=== PATIENT | female | born 1990 | race African-American/Black ===

== ENCOUNTER 2017-07-09 23:03 | Emergency (ER) | payer SELFPAY ==
[2017-07-09] MEDS ORDERED: NORMAL SALINE 1000 ML 1,000 ML IV ONE (23:55)
[2017-07-09] MEDS ORDERED: ONDANSETRON HCL INJ/PF 4 MG/2 ML SDV IV ONE (23:55)
[2017-07-10 00:56] LABS: APPEARANCE,URINE SLIGHTLY-CLOUDY; BILIRUBIN,URINE NEGATIVE (NEGATIVE); GLUCOSE, URINE NEGATIVE (NEGATIVE); KETONES,URINE 80 mg/dL (NEGATIVE); LEUKOCYTE ESTERASE,URINE NEGATIVE (NEGATIVE); NITRITE,URINE NEGATIVE (NEGATIVE); PROTEIN,URINE 30 mg/dL (NEGATIVE); UROBILINOGEN,URINE NEGATIVE mg/dL (<2.0)
[2017-07-10 01:01] LABS: HEMATOCRIT 42.8 % (36.0-47.0); HEMOGLOBIN 13.9 g/dL (12.0-15.5); HGB HCT DIFFERENCE -1.1; MEAN CORPUSCULAR HEMOGLOBIN 24.9 pg (27.0-33.4); MEAN CORPUSCULAR HGB CONC 32.4 g/dL (32.0-36.0); MEAN CORPUSCULAR VOLUME 77 fl (80-97); RED BLOOD COUNT 5.57 10^6/uL (3.72-5.28); RED CELL DISTRIBUTION WIDTH 14.5 % (11.5-14.0); WHITE BLOOD COUNT 9.5 10^3/uL (4.0-10.5)
[2017-07-10 01:12] LABS: BAND NEUTROPHILS % (MANUAL) 1 % (3-5); BASOPHILS % (MANUAL) 0 % (0-2); EOSINOPHILS % (MANUAL) 0 % (0-6); LYMPHOCYTES % (MANUAL) 3 % (13-45); TOTAL CELLS COUNTED 100
[2017-07-10 01:15] LABS: ALANINE AMINOTRANSFERASE 25 U/L (9-52); ALBUMIN 4.6 g/dL (3.5-5.0); ALKALINE PHOSPHATASE 56 U/L (38-126); ANION GAP 13 (5-19); ASPARTATE AMINO TRANSFERASE 20 U/L (14-36); BILIRUBIN,DIRECT 0.3 mg/dL (0.0-0.4); BILIRUBIN,TOTAL 1.3 mg/dL (0.2-1.3); BLOOD UREA NITROGEN 13 mg/dL (7-20); CALCIUM 9.7 mg/dL (8.4-10.2); CARBON DIOXIDE 24 mmol/L (22-30); CHLORIDE 105 mmol/L (98-107); CREATININE RESULT 0.72 mg/dL (0.52-1.25); GLUCOSE 102 mg/dL (75-110); SODIUM 142.3 mmol/L (137-145); TOTAL PROTEIN 8.1 g/dL (6.3-8.2)
[2017-07-10 01:18] LABS: ANISOCYTOSIS SLIGHT; HYPOCHROMASIA SLIGHT; MICROCYTOSIS SLIGHT; OVALOCYTES 1+; POIKILOCYTOSIS SLIGHT; TEAR DROP CELLS SLIGHT; TOXIC VACUOLATION PRESENT
[2017-07-10] MEDS ORDERED: NORMAL SALINE 1000 ML 1,000 ML IV ONE (01:18)
--- NOTE | 2017-07-10 02:36 | ER Document Report ---
ED General - General Chief Complaint: Nausea/Vomiting/Diarrhea Stated Complaint: VOMITING AND DIARRHEA Time Seen by Provider: 07/10/17 01:17 TRAVEL OUTSIDE OF THE [place] IN LAST 30 DAYS: No - HPI Patient complains to provider of: Nausea vomiting diarrhea Notes: Patient coming in for evaluation of nausea vomiting diarrhea ongoing just prior to arrival. Patient states had normal diet no other sick contacts denies any recent antibiotics or recent travel. Upon my evaluation patient is lying in the bed comfortably no obvious distress. Patient states she has been sipping some water states noted anything unusual about her diarrhea. Past Medical History - Social History Smoking Status: Unknown if Ever Smoked Family History: Reviewed & Not Pertinent Renal/ Medical History: Denies: Hx Peritoneal Dialysis Review of Systems - Review of Systems Constitutional: No symptoms reported EENT: No symptoms reported Cardiovascular: No symptoms reported Respiratory: No symptoms reported Gastrointestinal: Diarrhea, Nausea, Vomiting Genitourinary: No symptoms reported Female Genitourinary: No symptoms reported Musculoskeletal: No symptoms reported Skin: No symptoms reported Hematologic/Lymphatic: No symptoms reported Neurological/Psychological: No symptoms reported -: Yes All other systems reviewed and negative Physical Exam - Vital signs Vitals: Temp Pulse Resp BP Pulse Ox 99.5 F 103 H 20 123/78 100 07/09/17 23:51 07/09/17 23:51 07/09/17 23:51 07/09/17 23:51 07/09/17 23:51 Interpretation: Normal - General General appearance: Appears well, Alert - HEENT Head: Normocephalic, Atraumatic Eyes: Normal Pupils: PERRL - Respiratory Respiratory status: No respiratory distress Chest status: Nontender Breath sounds: Normal Chest palpation: Normal - Cardiovascular Rhythm: Regular Heart sounds: Normal auscultation Murmur: No - Abdominal Inspection: Normal Distension: No distension Bowel sounds: Normal Tenderness: Nontender Organomegaly: No organomegaly - Back Back: Normal, Nontender - Extremities General upper extremity: Normal inspection, Nontender, Normal color, Normal ROM , Normal temperature General lower extremity: Normal inspection, Nontender, Normal color, Normal ROM , Normal temperature, Normal weight bearing. No: Grace's sign - Neurological Neuro grossly intact: Yes Cognition: Normal Orientation: AAOx4 Philip Coma Scale Eye Opening: Spontaneous [place] Coma Scale Verbal: Oriented [place] Coma Scale Motor: Obeys Commands [place] Coma Scale Total: 15 Speech: Normal Motor strength normal: LUE, RUE, LLE, RLE Sensory: Normal - Psychological Associated symptoms: Normal affect, Normal mood - Skin Skin Temperature: Warm Skin Moisture: Dry Skin Color: Normal Course - Re-evaluation Re-evalutation: 07/10/17 05:08 The patient presents with nausea vomiting diarrhea without signs of peritonitis or other life-threatening or serious etiology. The patient appears stable for discharge and has been instructed to return immediately if the symptoms worsen in any way, or in 8-12hr if not improved for re-evaluation. The patient has been instructed to return if the symptoms worsen or change in any way. - Vital Signs Vital signs: Temp Pulse Resp BP Pulse Ox 99.5 F 90 18 120/78 98 07/09/17 23:51 07/10/17 02:54 07/10/17 02:54 07/10/17 02:54 07/10/17 02:54 - Laboratory Result Diagrams: 07/10/17 00:33 07/10/17 00:33 Laboratory results interpreted by me: 07/10/17 07/10/17 00:32 00:33 RBC 5.57 H MCV 77 L MCH 24.9 L RDW 14.5 H Seg Neuts % (Manual) 94 H Band Neutrophils % 1 L Lymphocytes % (Manual) 3 L Monocytes % (Manual) 2 L Abs Neuts (Manual) 9.0 H Abs Lymphs (Manual) 0.3 L Urine Protein 30 H Urine Ketones 80 H Urine Blood MODERATE H Discharge - Discharge Clinical Impression: Nausea vomiting and diarrhea Condition: Good Disposition: HOME, SELF-CARE Instructions: Gastroenteritis (adult) (FORM[facility]LY [facility]) Additional Instructions: Continue to follow a liquid diet for the next 12-24 hours. He may take the Zofran and Phenergan as prescribed. Return to ER symptoms worsen. Please be aware that his symptoms may last for 48-96 hours Prescriptions: Ondansetron [Zofran Odt 4 mg Tablet] 4 mg PO Q4HP PRN #30 tab.rapdis PRN Reason: Promethazine HCl [Phenergan 25 mg Tablet] 25 - 50 mg PO ASDIR PRN #30 tablet PRN Reason: Forms: Return to Work
[2017-07-10 02:54] VITALS: BP 120/78
== END 2017-07-10 02:54 | disposition home or self-care (01) ==
LOC: ER 23:03
DX: R11.2 Nausea with vomiting, unspecified (principal); R19.7 Diarrhea, unspecified
CPT/HCPCS: 99284; 96361; 96374; 36415; 84703; 85025; 80053; 81001; J2405; J7030